=== PATIENT | female | born 1945 | race Caucasian/White ===

== ENCOUNTER 2023-08-01 11:37 | Emergency (ER) | payer BC, MEDICARE ==
[~2023-08-01] VITALS: Ht 165.1 cm; Wt 81.6 kg
[2023-08-01 11:51] VITALS: BP_SYST 136; PULSE 54; RESP 18; TEMP 98.3; O2SAT 98
[2023-08-01] MEDS ORDERED: traMADol HCL HCL 50 MG TABLET (ULTRAM) PO ONE (12:15)
[2023-08-01 14:33] VITALS: BP_SYST 158; PULSE 57; RESP 20; TEMP 97.4; O2SAT 96
== END 2023-08-01 14:40 | disposition home or self-care (01) ==
LOC: SED 11:37
DX: S82.832A Other fracture of upper and lower end of left fibula, initial encounter for closed fracture (principal); W01.0XXA Fall on same level from slipping, tripping and stumbling without subsequent striking against object, initial encounter; Y93.89 Activity, other specified; Y92.89 Other specified places as the place of occurrence of the external cause; Y99.8 Other external cause status
CPT/HCPCS: 99284